=== PATIENT | female | born 1975 | race African-American/Black ===

== ENCOUNTER 2022-05-16 05:55 | Emergency (ER) | payer BC, MEDICAID ==
[~2022-05-16] VITALS: Ht 162.6 cm; Wt 91.0 kg
[2022-05-16 06:17] VITALS: BP 200/116
== END 2022-05-16 10:48 | disposition left against medical advice (07) ==
LOC: ER 05:55
DX: Z53.21 Procedure and treatment not carried out due to patient leaving prior to being seen by health care provider (principal)